=== PATIENT | male | born 1970 | race Caucasian/White ===

== ENCOUNTER 2023-07-27 09:58 | Day surgery (SDC) | payer OTHER ==
[2023-07-27] MEDS: LACTATED RINGERS 1,000 ML IV SCH (10:44)
[2023-07-27 10:56] VITALS: TEMP 98.1
[2023-07-27] MEDS ORDERED: PROPOFOL 10 MG/ML 20 ML VIAL IV ONE (11:44)
--- NOTE | 2023-07-27 12:05 | P.PCN ---
Date of Procedure: 07/27/23 Procedure(s) Performed: Brief history: Patient is a pleasant 53-year-old white male scheduled for an elective upper endoscopy as well as colonoscopy as a part of evaluation of intermittent episodes of nausea vomiting and history of colon polyps. Last colonoscopy was 5 years ago. Procedure performed: Esophagogastroduodenoscopy with biopsy Colonoscopy with biopsy Preoperative diagnosis: Intermittent episodes of nausea vomiting History of colon polyps Anesthesia: MAC Procedure: After informed consent was obtained from the patient was brought into the endoscopy unit and IV sedation was administered by anesthesia under continuous monitoring. Initially upper endoscopy was done. The Olympus GF 160 video endoscope was inserted inserted into the mouth and esophagus intubated without any difficulty and was gradually advanced into the stomach and duodenum and carefully examined. The bulb and second part of the duodenum appeared normal. The scope was then withdrawn into the stomach adequately insufflated with air and upon careful examination the antrum had mild gastritis and biopsies were done from this area. Mucosa of the, cardia and fundus appeared normal. The scope was then withdrawn into the esophagus. The GE junction was located at 40 cm to the incisors. It appeared regular linear erosions and one superficial ulceration consistent with LA grade C reflux esophagitis Rest of the esophagus appeared normal. Patient tolerated the procedure well. At this time the patient continued to remain sedation. Initial digital rectal examination was normal. Olympus CF 160 video colonoscope was then inserted into the rectum and gradually advanced to the cecum without any difficulty. Careful examination was performed as the scope was gradually being withdrawn. The prep was excellent. The cecum, ascending colon, transverse colon, descending colon, sigmoid colon and rectum appeared normal. The proximal rectum there was a 3 mm polyp that was removed by cold biopsy. Retroflexion was performed in the rectum and grade 2 internal hemorrhoids were noted. Patient tolerated the procedure well. Impression: 1. Upper endoscopy revealed linear erosions with one superficial ulceration in the distal esophagus consistent with LA grade C reflux esophagitis and mild antral gastritis 2. Colonoscopy revealed 3 mm proximal rectal polyp status post cold biopsy and grade 2 internal hemorrhoids Recommendations: Findings of this examination were discussed with the patient as well as his family. He was advised to follow with the biopsy results. He'll be started on omeprazole 40 mg daily and was briefly educated about antireflux measures. Follow up in office in 3 months. Recommended repeat screening colonoscopy in 5- 10 years based the biopsy result.
[2023-07-27 12:47] VITALS: BP 124/91; PULSE 66; RESP 16
== END 2023-07-27 12:40 | disposition home or self-care (01) ==
LOC: ORWHC2ENDO 09:58
PROVIDERS: ATTEND Internal Medicine Gastroenterology
DX: K29.50 Unspecified chronic gastritis without bleeding (principal); K62.1 Rectal polyp; K21.00 Gastro-esophageal reflux disease with esophagitis, without bleeding; K64.1 Second degree hemorrhoids; R11.2 Nausea with vomiting, unspecified; K22.10 Ulcer of esophagus without bleeding; Z79.899 Other long term (current) drug therapy; Z86.010 Personal history of colon polyps
CPT/HCPCS: 88305; 45380; 43239; J2704